=== PATIENT | female | born 2005 | race Caucasian/White ===

== ENCOUNTER 2023-07-06 09:40 | Inpatient (IN) | payer MEDICAID, OTHER ==
[~2023-07-06] VITALS: Ht 157.5 cm; Wt 106.2 kg
[2023-07-06] MEDS ORDERED: MED REC IN PROGRESS XX SCH (10:20)
[2023-07-06 10:34] LABS: HEMATOCRIT 42.9 % (36.0-47.0); HEMOGLOBIN 13.9 g/dl (12.0-15.5); MEAN CORPUSCULAR HEMOGLOBIN 25.9 pg (27.0-33.0); MEAN CORPUSCULAR HGB CONC 32.4 g/dl (32.0-36.5); MEAN CORPUSCULAR VOLUME 79.9 fl (80.0-96.0); PLATELET COUNT, AUTOMATED 243 10^3/uL (150-450); RED BLOOD COUNT 5.37 10^6/uL (4.00-5.40); WHITE BLOOD COUNT 7.2 10^3/uL (4.0-10.0)
[2023-07-06] MEDS ORDERED: HOME MED LIST COMPLETE! XX SCH (10:55)
[2023-07-06 10:56] LABS: ETHYL ALCOHOL (ETHANOL) < 0.003 % (0.000-0.010); HCG, SERUM QUALITATIVE NEGATIVE (NEGATIVE)
[2023-07-06 10:58] LABS: ALBUMIN 3.9 G/DL (3.2-5.2); ALKALINE PHOSPHATASE 75 U/L (46-116); ALT/SGPT 29 U/L (7.0-40); AST/SGOT 27 U/L (<34); BILIRUBIN,DIRECT 0.1 MG/DL (<0.4); BILIRUBIN,TOTAL 0.4 MG/DL (0.3-1.2); BLOOD UREA NITROGEN 9 MG/DL (9-23); CALCIUM LEVEL 9.1 MG/DL (8.5-10.1); CARBON DIOXIDE LEVEL 26 MMOL/L (20-31); CHLORIDE LEVEL 105 MMOL/L (98-107); CREATININE FOR GFR 0.78 MG/DL (0.55-1.30); GLUCOSE, FASTING 94 MG/DL (60-100); POTASSIUM SERUM 3.7 MMOL/L (3.5-5.1); SALICYLATE LEVEL < 3.0 MG/DL (<30); SODIUM LEVEL 140 MMOL/L (136-145)
[2023-07-06 11:00] LABS: THYROID STIMULATING HORMONE 1.985 uIU/ML (0.48-4.17)
[2023-07-06 11:23] LABS: AMPHETAMINES LEVEL URINE NEGATIVE (NEGATIVE); BARBITURATES URINE NEGATIVE (NEGATIVE); CANNABINOIDS URINE NEGATIVE (NEGATIVE); COCAINE METABOLITE URINE NEGATIVE (NEGATIVE); METHADONE URINE NEGATIVE (NEGATIVE); OPIATES URINE NEGATIVE (NEGATIVE); PHENCYCLIDINE URINE NEGATIVE (NEGATIVE)
[2023-07-06 11:24] LABS: BENZODIAZEPINES URINE NEGATIVE (NEGATIVE)
[2023-07-06] MEDS ORDERED: OLANZapine ORAL DISINTEGRATING TAB 5MG PO PRN (12:35)
[2023-07-06] MEDS ORDERED: ACETAMINOPHEN TAB 650MG DOSE (2X325MG) PO PRN (12:35)
[2023-07-06] MEDS ORDERED: MAALOX 30 ML SUSP *UDC PO PRN (12:35)
[2023-07-06] MEDS ORDERED: MOM 30ML SUSPENSION UDC PO PRN (12:35)
[2023-07-06] MEDS ORDERED: IBUPROFEN 400MG TAB PO PRN (12:35)
[2023-07-06] MEDS ORDERED: diphenhydrAMINE 25MG CAP PO PRN (12:35)
[2023-07-06] MEDS ORDERED: traZODone 50 MG TAB PO PRN (12:35)
[2023-07-06 17:24] VITALS: BP 125/69; TEMP 96.6; O2SAT 98
[2023-07-07 06:37] VITALS: BP 124/67; TEMP 97.7; O2SAT 99
[2023-07-07] MEDS ORDERED: INFLUENZA QUADRIVALENT PF VACCINE 0.5ML SYRINGE IM.IMMUN ONE (09:00)
[2023-07-07] MEDS: SERTRALINE HCL 25 MG TABLET PO SCH (10:30)
[2023-07-07] MEDS ORDERED: OLANZapine ORAL DISINTEGRATING TAB 5MG PO PRN (13:15)
[2023-07-07] MEDS: OLANZapine 5 MG TAB PO SCH ×2 (13:27→21:26)
[2023-07-07 16:17] VITALS: BP 129/62; TEMP 98; O2SAT 99
[2023-07-07] MEDS ORDERED: OLANZapine 5 MG TAB PO SCH (21:00)
[2023-07-08 06:41] VITALS: BP 139/82; TEMP 98; O2SAT 98
[2023-07-08 07:01] LABS: HDL CHOLESTEROL 41.7 MG/DL (>40); LDL CHOLESTEROL 102.1 MG/DL (<100); NON-HDL-C 125.3 MG/DL
[2023-07-08] MEDS: OLANZapine 5 MG TAB PO SCH ×2 (09:52→20:14)
[2023-07-08] MEDS: SERTRALINE HCL 25 MG TABLET PO SCH (09:52)
[2023-07-08 17:44] VITALS: BP 141/93; TEMP 98.7
[2023-07-09 05:54] VITALS: BP 121/66; TEMP 98.7; O2SAT 97
[2023-07-09] MEDS: OLANZapine 5 MG TAB PO SCH ×2 (08:54→20:25)
[2023-07-09] MEDS: SERTRALINE HCL 25 MG TABLET PO SCH (08:54)
[2023-07-09 18:22] VITALS: BP 153/82; TEMP 98.7
[2023-07-10 06:38] VITALS: BP 126/74; TEMP 98.7; O2SAT 96
[2023-07-10] MEDS: SERTRALINE HCL 25 MG TABLET PO SCH (08:53)
[2023-07-10] MEDS: OLANZapine 5 MG TAB PO SCH ×2 (08:53→21:23)
[2023-07-10 14:00] VITALS: BP 135/92; TEMP 98.6; O2SAT 96
[2023-07-11 06:37] VITALS: BP 121/77; TEMP 98.8; O2SAT 97
[2023-07-11] MEDS: SERTRALINE HCL 25 MG TABLET PO SCH (08:16)
[2023-07-11] MEDS: OLANZapine 5 MG TAB PO SCH ×2 (08:16→20:13)
[2023-07-11 16:36] VITALS: BP 140/88; TEMP 97.9; O2SAT 98
[2023-07-12 06:44] VITALS: BP 128/79; TEMP 97.9; O2SAT 96
[2023-07-12] MEDS: SERTRALINE HCL 25 MG TABLET PO SCH (09:13)
[2023-07-12] MEDS: OLANZapine 10 MG TAB PO SCH (11:29)
[2023-07-12 18:36] VITALS: BP 133/78; TEMP 97.7; O2SAT 96
[2023-07-13 06:30] VITALS: BP 124/80; TEMP 98; O2SAT 97
[2023-07-13] MEDS: OLANZapine 10 MG TAB PO SCH (08:24)
[2023-07-13] MEDS: SERTRALINE HCL 25 MG TABLET PO SCH (08:24)
[2023-07-13 18:41] VITALS: BP 139/63; TEMP 97.5; O2SAT 98
[2023-07-14 05:54] VITALS: BP 135/75; TEMP 98.3; O2SAT 98
[2023-07-14] MEDS: SERTRALINE HCL 25 MG TABLET PO SCH (08:13)
[2023-07-14] MEDS: OLANZapine 10 MG TAB PO SCH (08:13)
[2023-07-14] MEDS ORDERED: OLAN5ZYD PO (10:55)
[2023-07-14] MEDS ORDERED: OLAN1TAB20 PO (10:55)
[2023-07-14] MEDS ORDERED: SERT25TA21 PO (10:55)
== END 2023-07-14 16:31 | disposition home or self-care (01) | DRG 750 ==
LOC: M ED 09:40 → M ED INP 12:35 → M PSY 16:27
PROVIDERS: ADMIT Student in an Organized Health Care Education/Training Program; ATTEND Student in an Organized Health Care Education/Training Program
DX: F20.9 Schizophrenia, unspecified (principal); F33.2 Major depressive disorder, recurrent severe without psychotic features; R45.851 Suicidal ideations; F43.9 Reaction to severe stress, unspecified; F41.9 Anxiety disorder, unspecified; F60.3 Borderline personality disorder; Z91.52 Personal history of nonsuicidal self-harm; Z20.822 Contact with and (suspected) exposure to COVID-19

== ENCOUNTER 2023-08-04 13:29 | Emergency (ER) | payer MEDICAID, OTHER ==
[~2023-08-04] VITALS: Ht 157.5 cm; Wt 108.8 kg
[~2023-08-04 13:29] MED LIST: OLAN1TAB20 PO; OLAN5ZYD PO; SERT25TA21 PO
[2023-08-04 13:30] VITALS: BP 121/69; TEMP 97.1; O2SAT 97
[2023-08-04 14:48] LABS: HEMATOCRIT 43.7 % (36.0-47.0); HEMOGLOBIN 13.8 g/dl (12.0-15.5); MEAN CORPUSCULAR HEMOGLOBIN 25.4 pg (27.0-33.0); MEAN CORPUSCULAR HGB CONC 31.6 g/dl (32.0-36.5); MEAN CORPUSCULAR VOLUME 80.3 fl (80.0-96.0); PLATELET COUNT, AUTOMATED 262 10^3/uL (150-450); RED BLOOD COUNT 5.44 10^6/uL (4.00-5.40); WHITE BLOOD COUNT 13.2 10^3/uL (4.0-10.0)
[2023-08-04] MEDS ORDERED: MED REC IN PROGRESS XX SCH (14:50)
[2023-08-04 15:08] LABS: AMPHETAMINES LEVEL URINE NEGATIVE (NEGATIVE); BARBITURATES URINE NEGATIVE (NEGATIVE); BENZODIAZEPINES URINE NEGATIVE (NEGATIVE); CANNABINOIDS URINE NEGATIVE (NEGATIVE); COCAINE METABOLITE URINE NEGATIVE (NEGATIVE); METHADONE URINE NEGATIVE (NEGATIVE); OPIATES URINE NEGATIVE (NEGATIVE); PHENCYCLIDINE URINE NEGATIVE (NEGATIVE)
[2023-08-04 15:10] LABS: ETHYL ALCOHOL (ETHANOL) < 0.003 % (0.000-0.010)
[2023-08-04 15:12] LABS: SALICYLATE LEVEL < 3.0 MG/DL (<30)
[2023-08-04 15:27] LABS: ALBUMIN 3.6 G/DL (3.2-5.2); ALKALINE PHOSPHATASE 100 U/L (46-116); ALT/SGPT 21 U/L (7.0-40); AST/SGOT 14 U/L (<34); BILIRUBIN,DIRECT < 0.1 MG/DL (<0.4); BILIRUBIN,TOTAL 0.2 MG/DL (0.3-1.2); BLOOD UREA NITROGEN 11 MG/DL (9-23); CALCIUM LEVEL 8.5 MG/DL (8.5-10.1); CARBON DIOXIDE LEVEL 27 MMOL/L (20-31); CHLORIDE LEVEL 106 MMOL/L (98-107); CREATININE FOR GFR 0.63 MG/DL (0.55-1.30); GLUCOSE, FASTING 76 MG/DL (60-100); POTASSIUM SERUM 3.8 MMOL/L (3.5-5.1); SODIUM LEVEL 140 MMOL/L (136-145); THYROID STIMULATING HORMONE 2.012 uIU/ML (0.48-4.17); TOTAL PROTEIN 6.8 G/DL (5.7-8.2)
[2023-08-04 15:35] LABS: HCG, SERUM QUALITATIVE NEGATIVE (NEGATIVE)
[2023-08-04] MEDS ORDERED: OLAN5ZYD PO (15:56)
[2023-08-04] MEDS ORDERED: SERT25TA85 PO (15:58)
[2023-08-04] MEDS ORDERED: OLAN1TAB20 PO (15:58)
[2023-08-04] MEDS ORDERED: HOME MED LIST COMPLETE! XX SCH (16:00)
[2023-08-04] MEDS ORDERED: ZYPR10TA PO (16:55)
== END 2023-08-04 17:13 | disposition home or self-care (01) ==
LOC: M ED 13:29
DX: F32.A Depression, unspecified (principal); F41.9 Anxiety disorder, unspecified; Z91.51 Personal history of suicidal behavior; Z79.899 Other long term (current) drug therapy

== ENCOUNTER 2025-03-19 17:04 | Inpatient (IN) | payer OTHER ==
[~2025-03-19] VITALS: Ht 157.5 cm; Wt 123.6 kg
[~2025-03-19 17:04] MED LIST changes: +SERT25TA85 PO; +ZYPR10TA PO
[2025-03-19] MEDS ORDERED: FERR32TA PO (17:11)
[2025-03-19] MEDS ORDERED: SERT50TA29 PO (17:11)
[2025-03-19] MEDS ORDERED: ETHI1TAB10 PO (17:11)
[2025-03-19] MEDS ORDERED: VITAMIN (17:11)
[2025-03-19] MEDS ORDERED: PROP10TA56 PO (17:11)
[2025-03-19 18:29] LABS: PLATELET COUNT, AUTOMATED 285 10^3/uL (150-450)
[2025-03-19 18:51] LABS: ETHYL ALCOHOL (ETHANOL) < 0.003 % (0.000-0.010)
[2025-03-19] MEDS ORDERED: VITA200032 PO (18:51)
[2025-03-19] MEDS ORDERED: OLAN1TAB20 PO (18:51)
[2025-03-19 18:53] LABS: ALT/SGPT 35 U/L (7.0-40); AST/SGOT 26 U/L (<34); CALCIUM LEVEL 9.2 MG/DL (8.5-10.1); CARBON DIOXIDE LEVEL 24 MMOL/L (20-31); CHLORIDE LEVEL 104 MMOL/L (98-107); CREATININE FOR GFR 0.83 MG/DL (0.55-1.30); GLOMERULAR FILTRATION RATE > 90.0 (>60); POTASSIUM SERUM 4.0 MMOL/L (3.5-5.1); SALICYLATE LEVEL < 3.0 MG/DL (<30); SODIUM LEVEL 142 MMOL/L (136-145)
[2025-03-19] MEDS ORDERED: HOME MED LIST COMPLETE! XX SCH (18:55)
[2025-03-19 19:01] LABS: HCG, SERUM QUALITATIVE NEGATIVE (NEGATIVE)
[2025-03-19 19:02] LABS: AMPHETAMINES LEVEL URINE NEGATIVE (NEGATIVE); BARBITURATES URINE NEGATIVE (NEGATIVE); BENZODIAZEPINES URINE NEGATIVE (NEGATIVE); COCAINE METABOLITE URINE NEGATIVE (NEGATIVE); METHADONE URINE NEGATIVE (NEGATIVE); OPIATES URINE NEGATIVE (NEGATIVE); PHENCYCLIDINE URINE NEGATIVE (NEGATIVE)
[2025-03-19 19:03] LABS: CANNABINOIDS URINE POSITIVE (NEGATIVE)
[2025-03-19] MEDS ORDERED: MAALOX 30 ML SUSP *UDC PO PRN (19:20)
[2025-03-19] MEDS ORDERED: IBUPROFEN 400 MG TAB PO PRN (19:20)
[2025-03-19] MEDS ORDERED: MOM 30 ML SUSPENSION UDC PO PRN (19:20)
[2025-03-20 00:27] VITALS: BP 150/94; TEMP 97; O2SAT 98
[2025-03-20 06:33] VITALS: BP 136/88; TEMP 97.2; O2SAT 100
[2025-03-20] MEDS: SERTRALINE 100 MG TAB PO SCH (09:19)
[2025-03-20] MEDS: PROPRANOLOL 10 MG TAB PO SCH (09:19)
[2025-03-20 14:43] VITALS: BP 121/85; TEMP 97.8; O2SAT 98
[2025-03-20] MEDS: ACETAMINOPHEN 325 MG TAB PO PRN (20:13)
[2025-03-20] MEDS: OLANZapine 10 MG TAB PO SCH (20:13)
[2025-03-20] MEDS: traZODone 50 MG TAB PO PRN (22:22)
[2025-03-21 06:40] VITALS: BP 134/78; TEMP 98.4; O2SAT 95
[2025-03-21 15:42] VITALS: BP 128/73; TEMP 98; O2SAT 95
[2025-03-21] MEDS: [UNRECOGNIZED DRUG - OTHER] PO SCH (18:53)
[2025-03-21] MEDS: DROSPIRENONE PO SCH (18:53)
[2025-03-21] MEDS: ETHINYL ESTRADIOL PO SCH (18:53)
[2025-03-21] MEDS: RAMELTEON 8 MG TAB PO SCH (20:05)
[2025-03-21] MEDS: OLANZapine 5 MG TAB PO SCH (20:05)
[2025-03-22 06:26] VITALS: BP 133/87; TEMP 97.3; O2SAT 98
[2025-03-22 15:03] VITALS: BP 123/65; TEMP 97.8; O2SAT 96
[2025-03-23 06:16] VITALS: BP 130/80; TEMP 97.5; O2SAT 100
[2025-03-23 15:07] VITALS: BP 123/70; TEMP 97.8; O2SAT 98
[2025-03-24 06:31] VITALS: BP_SYST 112; BP_SYST 119; BP_DIAS 64; BP_DIAS 76; TEMP 99; O2SAT 96; O2SAT 98
[2025-03-24 16:25] VITALS: BP 123/84; TEMP 97.5; O2SAT 97
[2025-03-24] MEDS ORDERED: PROP10TA56 PO (21:08)
[2025-03-24] MEDS ORDERED: TRAZ-252 PO (21:08)
[2025-03-24] MEDS ORDERED: ZOLO100T PO (21:08)
[2025-03-25 06:22] VITALS: BP 122/85; TEMP 97.9; O2SAT 97
[2025-03-25 08:41] VITALS: BP 152/102
== END 2025-03-25 14:25 | disposition home or self-care (01) | DRG 751 ==
LOC: M ED 17:04 → M ED INP 19:19 → M PSY 03-20 00:05
PROVIDERS: ADMIT Student in an Organized Health Care Education/Training Program; ATTEND Student in an Organized Health Care Education/Training Program
DX: F33.9 Major depressive disorder, recurrent, unspecified (principal); Z68.42 Body mass index [BMI] 45.0-49.9, adult; E66.01 Morbid (severe) obesity due to excess calories; F41.1 Generalized anxiety disorder; F60.3 Borderline personality disorder; F43.10 Post-traumatic stress disorder, unspecified; Z79.899 Other long term (current) drug therapy; J45.909 Unspecified asthma, uncomplicated; F12.90 Cannabis use, unspecified, uncomplicated